=== PATIENT | male | born 1945 | race African-American/Black ===

== ENCOUNTER 2018-02-23 00:47 | Emergency (ER) | payer MEDICARE ==
[~2018-02-23] VITALS: Ht 182.9 cm; Wt 99.8 kg
[2018-02-23 02:23] VITALS: BP 138/75
[2018-02-23] MEDS ORDERED: LACTULOSE 20Gm/30ML SOLN PO ONE (02:30)
[2018-02-23] MEDS ORDERED: MAGNESIUM CITRATE SOLUTION 300 ML BTL PO ONE (02:30)
== END 2018-02-23 03:49 | disposition home or self-care (01) ==
LOC: ER 00:52
DX: K80.20 Calculus of gallbladder without cholecystitis without obstruction (principal); E11.9 Type 2 diabetes mellitus without complications; I10 Essential (primary) hypertension; Z86.73 Personal history of transient ischemic attack (TIA), and cerebral infarction without residual deficits
CPT/HCPCS: 74176

== ENCOUNTER 2018-05-12 10:18 | Emergency (ER) | payer MEDICARE, OTHER ==
[~2018-05-12] VITALS: Ht 182.9 cm; Wt 98.9 kg
[2018-05-12 14:02] VITALS: BP 140/85
== END 2018-05-12 15:34 | disposition home or self-care (01) ==
LOC: ER 10:18
DX: S52.612A Displaced fracture of left ulna styloid process, initial encounter for closed fracture (principal); S52.572A Other intraarticular fracture of lower end of left radius, initial encounter for closed fracture; M25.561 Pain in right knee; I10 Essential (primary) hypertension; E11.9 Type 2 diabetes mellitus without complications; Z90.49 Acquired absence of other specified parts of digestive tract; Z86.73 Personal history of transient ischemic attack (TIA), and cerebral infarction without residual deficits; Z95.1 Presence of aortocoronary bypass graft; W01.0XXA Fall on same level from slipping, tripping and stumbling without subsequent striking against object, initial encounter; Y93.89 Activity, other specified; Y99.8 Other external cause status; Y92.89 Other specified places as the place of occurrence of the external cause
CPT/HCPCS: 29125; 70450; 73100; 73560; 93005

== ENCOUNTER 2020-08-23 19:29 | Emergency (ER) | payer MEDICARE, OTHER ==
[~2020-08-23] VITALS: Ht 172.7 cm; Wt 99.8 kg
[2020-08-24 01:00] VITALS: BP 141/77
== END 2020-08-24 01:28 | disposition home or self-care (01) ==
LOC: EDBD 19:29 → ER 19:31
DX: R55 Syncope and collapse (principal); E11.9 Type 2 diabetes mellitus without complications; I10 Essential (primary) hypertension
CPT/HCPCS: 70450; 93005

== ENCOUNTER 2020-09-03 15:14 | Emergency (ER) | payer MEDICARE, OTHER ==
[~2020-09-03] VITALS: Ht 182.9 cm; Wt 99.8 kg
[2020-09-03 15:30] VITALS: BP 120/82
[2020-09-03 16:24] LABS: Basophils # (auto) 0.1 10 ^3/uL (0-0.2); Eosinophils # (auto) 0.3 10 ^3/uL (0-0.8); Hemoglobin 14.9 g/dL (13.5-17.5); Monocytes # (auto) 0.6 10 ^3/uL (0-1.3); Nucleated Red Blood Cells % 0.1 %; White Blood Cell 11.3 10^3/uL (4.4-10.8)
[2020-09-03 16:26] LABS: Basophils % (auto) 0.5 % (0.0-2.0); Eosinophils % (auto) 2.9 % (0.0-7.0); Hematocrit 42.6 % (41.0-53.0); Lymphocytes # (auto) 1.6 10 ^3/uL (0.4-5.4); Lymphocytes % (auto) 14.2 % (10.0-50.0); Mean Corpuscular Hemoglobin 27.2 pg (28.0-32.0); Mean Corpuscular Volume 77.7 fL (80.0-100.0); Monocytes % (auto) 5.5 % (0.0-12.0); Neutrophils # (auto) 8.7 10 ^3/uL (1.6-8.6); Neutrophils % (auto) 76.9 % (37.0-80.0); Red Blood Cells 5.49 10^6/uL (4.5-5.90)
[2020-09-03 16:41] LABS: Albumin 3.6 g/dL (3.4-5.0); Calcium 9.4 mg/dL (8.5-10.1)
[2020-09-03 16:44] LABS: BUN/Creatinine Ratio 16.1; Bilirubin, Total 0.6 mg/dL (0.2-1.0); Total Protein 7.4 g/dL (6.4-8.2)
== END 2020-09-03 19:42 | disposition left against medical advice (07) ==
LOC: EDBD 15:14 → ER 15:17
DX: R55 Syncope and collapse (principal); R53.1 Weakness; Z53.21 Procedure and treatment not carried out due to patient leaving prior to being seen by health care provider
CPT/HCPCS: 36415; 80053; 85025; 93005